=== PATIENT | male | born 1980 | race Caucasian/White ===

== ENCOUNTER → 2023-04-07 09:34 | Outpatient (CLI) | payer OTHER, SELFPAY ==
--- NOTE | 2023-04-07 09:39 | DI.RAD.S_ITS ---
PROCEDURE: XR FINGER LT MIN 2V INDICATIONS: evaluate for foreign body, may be metallic TECHNIQUE: AP hand, 2 views of the thumb acquired. COMPARISON: None. FINDINGS: Bones: A few bony fragments of the tuft of the distal phalanx of the thumb are seen. No radiopaque foreign bodies. There is a defect of the tip of the thumb consistent with a remote injury and remodeling. Soft tissues: No suspicious soft tissue calcifications. IMPRESSION: Several bony fragments with a defect of the tip of the thumb consistent with a remote bony injury with remodeling. No radiopaque foreign bodies. Dictated by: Andrew Whitaker M.D. on 04/07/2023 at 9:56 Approved by: Andrew Whitaker M.D. on 04/07/2023 at 9:58
== END ==
PROVIDERS: Referring Provider Physician Assistant; Visit Provider Physician Assistant
DX: S60.459A Superficial foreign body of unspecified finger, initial encounter (principal); X58.XXXA Exposure to other specified factors, initial encounter
CPT/HCPCS: 73140